=== PATIENT | male | born 1990 | race Two or more races ===

== ENCOUNTER 2017-01-24 06:13 | Day surgery (SDC) | payer OTHER ==
[2017-01-23 10:01] VITALS: BMI 23.6
[2017-01-24] VITALS (12 sets, daily range): BP systolic 137–172; BP diastolic 61–79; PULSE 55–96; RESP 6–25; Ht 172.7 cm; Wt 77.0 kg
[~2017-01-24] VITALS: Ht 172.7 cm; Wt 77.0 kg
[2017-01-24] MEDS ORDERED: BACITRACIN/POLYMYXIN 28.35 GM OINT TOP ONE (08:22)
[2017-01-24] MEDS ORDERED: COCAINE 4% 4 ML TOP ONE ×2 (08:22→09:11)
[2017-01-24] MEDS ORDERED: LIDOCAINE 2% (SDV) 5 ML INJ ONE (08:27)
[2017-01-24] MEDS ORDERED: NEOSTIGMINE 3 MG/3 ML SYRINGE ONE ×2 (08:27→09:05)
[2017-01-24] MEDS ORDERED: MEPERIDINE 100 MG INJ ONE (08:27)
[2017-01-24] MEDS ORDERED: PROPOFOL 20 ML ONE (08:27)
[2017-01-24] MEDS ORDERED: SUCCINYLCHOLINE CHLORIDE 100 MG/5 ML SYG IV ONE (08:27)
[2017-01-24] MEDS ORDERED: ROCURONIUM 50 MG INJ ONE (08:27)
[2017-01-24] MEDS ORDERED: GLYCOPYRROLATE 0.4 MG INJ ONE ×2 (08:27→09:05)
--- NOTE | 2017-01-24 08:29 | HPN ---
Date/Time of Note Date/Time of Note DATE: 01/24/17 TIME: 08:29 Interval H&P Admission Note Pt. seen H&P reviewed: No system changes SUNIL SAMUEL M.D. January 24, 2017 08:29
[2017-01-24] MEDS ORDERED: BUPIVACAINE 0.25%/EPI (SDV) 30 ML INJ ONE ×2 (08:39→10:17)
[2017-01-24] MEDS ORDERED: BUPIVACAINE 0.25%/EPI (SDV) 30 ML INJ INJ ONE (09:11)
[2017-01-24] MEDS ORDERED: MEPERIDINE 25 MG INJ IV PRN (09:30)
[2017-01-24] MEDS ORDERED: FENTAnyl 50 MCG/ML VIAL IV PRN ×2 (09:30)
[2017-01-24] MEDS ORDERED: METOCLOPRAMIDE 10 MG INJ IV PRN (09:30)
[2017-01-24] MEDS ORDERED: ONDANSETRON 4 MG INJ IV PRN (09:30)
[2017-01-24] MEDS ORDERED: MIDAZOLAM 1 MG/ML 2 ML INJ IV PRN (09:30)
[2017-01-24] MEDS ORDERED: DIPHENHYDRAMINE 50 MG INJ IV PRN (09:30)
[2017-01-24] MEDS ORDERED: morphine (1 MG/ML) 10ML SYRINGE IV PRN ×2 (09:30)
[2017-01-24] MEDS ORDERED: HYDROmorphONE (0.2 MG/ML) 10ML SYG IV PRN ×2 (09:30)
[2017-01-24] MEDS ORDERED: NALOXONE (0.4 MG/ML) INJ ONE (10:49)
--- NOTE | 2017-01-24 11:09 | PDOCDIS ---
Discharge Instructions CONDITION Patient Condition: Good HOME CARE INSTRUCTIONS: Diet Instructions: Regular ACTIVITY: Activity Restrictions: Slowly Increase Activity Rest between Activity Avoid heavy lifting Do not operate Machinery Do not operate Power Tool Avoid Heavy Housework Bathing Restrictions: Tub Bath FOLLOW UP/APPOINTMENTS Appointments [facility] OFFICE IN TWO WEEKS. SCHOOL/WORK RELEASE May return to School/Work on: January 03, 2018 May return to School/Work with: No Restrictions SUNIL SAMUEL M.D. January 24, 2017 11:09
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
== END 2017-01-24 12:35 | disposition home or self-care (01) ==
LOC: SDS 06:13
PROVIDERS: ATTEND Otolaryngology Otolaryngology/Facial Plastic Surgery
DX: J34.2 Deviated nasal septum (principal); J34.3 Hypertrophy of nasal turbinates; J34.89 Other specified disorders of nose and nasal sinuses
CPT/HCPCS: 30140; 30520; 88300; J2175; J2310; J2405; J2710; J7999; Z7512; Z7610